=== PATIENT | male | born 1940 | race Hispanic/Latino ===

== ENCOUNTER 2023-01-31 21:11 | Emergency (ER) | payer MEDICARE ==
[~2023-01-31] VITALS: Ht 165.1 cm; Wt 59.0 kg
[~2023-01-31 21:11] MED LIST: ACYC400T20 PO; CITA-106 PO; DEXA4 PO; DONE10TA43 PO; ERGO500093 PO; LEVO75 PO; MONT-39 PO; ONDA-105 PO; POMA4CAP PO
[2023-01-31 21:36] LABS: BASOPHILS % (AUTO) 0.3 % (0.0-5.0); EOSINOPHILS % (AUTO) 0.4 % (0.0-8.0); HEMATOCRIT 33.7 % (42-54); LYMPHOCYTES % (AUTO) 8.4 % (21.0-51.0); MEAN CORPUSCULAR HEMOGLOBIN 32.1 pg (27.0-33.0); MEAN CORPUSCULAR HGB CONC 32.6 g/dL (32.0-36.0); MEAN CORPUSCULAR VOLUME 98.3 fL (79-99); MONOCYTES % (AUTO) 6.1 % (3.0-13.0); NEUTROPHILS % (AUTO) 84.3 % (40.0-77.0); PLATELET COUNT (AUTO) 337 K/uL (130-400); RED BLOOD CELL COUNT(AUTO) 3.43 MIL/uL (4.50-6.20); RED CELL DISTRIBUTION WIDTH 16.2 % (11.0-15.5); WHITE BLOOD COUNT (AUTO) 7.9 K/uL (4.8-10.8)
[2023-01-31 21:45] LABS: POTASSIUM 4.6 mmol/L (3.5-5.1)
[2023-01-31 21:48] LABS: INR 0.98 (0.85-1.15); PROTHROMBIN TIME 10.7 SEC (9.6-11.6)
[2023-01-31 21:49] LABS: PARTIAL THROMBOPLASTIN TIME 23.5 SEC (26.3-35.5)
[2023-01-31 21:55] LABS: ALBUMIN 2.8 g/dL (3.5-5.0); TOTAL PROTEIN, SERUM 5.2 g/dL (6.0-8.3)
[2023-01-31 23:42] VITALS: BP 125/63
== END 2023-01-31 23:55 | disposition home or self-care (01) ==
LOC: EDH 21:11
DX: S00.83XA Contusion of other part of head, initial encounter (principal); X58.XXXA Exposure to other specified factors, initial encounter; Y93.89 Activity, other specified; Y92.89 Other specified places as the place of occurrence of the external cause; Y99.8 Other external cause status; E03.9 Hypothyroidism, unspecified; F03.90 Unspecified dementia, unspecified severity, without behavioral disturbance, psychotic disturbance, mood disturbance, and anxiety; Z04.3 Encounter for examination and observation following other accident; Z79.899 Other long term (current) drug therapy
CPT/HCPCS: 36415; 70450; 72125; 80053; 84484; 85025; 85610; 85730; 93005